=== PATIENT | male | born 1935 | race Caucasian/White ===

== ENCOUNTER 2017-07-05 12:37 | Outpatient (CLI) | payer OTHER | END 2017-07-05 12:46 | disposition home or self-care (01) | LOC: RAD 12:37 | DX: M43.17 Spondylolisthesis, lumbosacral region (principal) ==

== ENCOUNTER 2017-07-12 12:59 | Outpatient (CLI) | payer OTHER | END 2017-07-12 13:23 | disposition home or self-care (01) | LOC: MRI 12:59 | DX: M46 Other inflammatory spondylopathies (principal); M19.90 Unspecified osteoarthritis, unspecified site; M48.00 Spinal stenosis, site unspecified | CPT/HCPCS: 72148 ==

== ENCOUNTER 2017-10-01 10:09 | Outpatient (CLI) | payer OTHER ==
[~2017-10-01 10:09] MED LIST: NABUMETONE750 MG PO; VOLTAREN100 GM TOP
== END 2017-10-01 10:10 | disposition home or self-care (01) ==
LOC: LAB 10:09
DX: I10 Essential (primary) hypertension (principal); E11.9 Type 2 diabetes mellitus without complications; E03.8 Other specified hypothyroidism; E78.2 Mixed hyperlipidemia

== ENCOUNTER 2017-10-03 10:21 | Outpatient (CLI) | payer OTHER | END 2017-10-03 10:47 | disposition home or self-care (01) | LOC: SONOGRAMA 10:21 | DX: M12.9 Arthropathy, unspecified (principal); M19.90 Unspecified osteoarthritis, unspecified site ==

== ENCOUNTER 2017-11-26 14:23 | Emergency (ER) | payer OTHER ==
[~2017-11-26] VITALS: Ht 170.2 cm; Wt 74.8 kg
[2017-11-26] MEDS ORDERED: XANAX XR0.5 MG PO (14:39)
[2017-11-26] MEDS ORDERED: AMBIEN5 MG PO (14:39)
== END 2017-11-26 15:27 | disposition home or self-care (01) ==
LOC: ER 14:23
DX: S01.02XA Laceration with foreign body of scalp, initial encounter (principal); W26.8XXA Contact with other sharp object(s), not elsewhere classified, initial encounter; Y93.89 Activity, other specified; Y92.89 Other specified places as the place of occurrence of the external cause; Y99.8 Other external cause status

== ENCOUNTER 2017-12-03 13:38 | Emergency (ER) | payer OTHER ==
[~2017-12-03] VITALS: Ht 170.2 cm; Wt 76.2 kg
[~2017-12-03 13:38] MED LIST changes: +AMBIEN5 MG PO; +XANAX XR0.5 MG PO
== END 2017-12-03 14:55 | disposition home or self-care (01) ==
LOC: ER 13:38
DX: Z48.02 Encounter for removal of sutures (principal)

== ENCOUNTER 2018-04-15 08:13 | Outpatient (CLI) | payer OTHER | END 2018-04-15 08:22 | disposition home or self-care (01) | LOC: SONOGRAMA 08:13 | DX: R10.9 Unspecified abdominal pain (principal) ==

== ENCOUNTER 2018-09-04 15:43 | Outpatient (CLI) | payer OTHER | END 2018-09-04 15:53 | disposition home or self-care (01) | LOC: TOM 15:43 | DX: J98.4 Other disorders of lung (principal); J44.9 Chronic obstructive pulmonary disease, unspecified; R06.02 Shortness of breath ==

== ENCOUNTER 2018-09-10 10:49 | Outpatient (CLI) | payer OTHER | END 2018-09-10 11:13 | disposition home or self-care (01) | LOC: EKG 10:49 → LAB 10:49 | DX: I10 Essential (primary) hypertension (principal) ==

== ENCOUNTER → 2018-10-01 10:32 | Outpatient (CLI) | payer OTHER | END | disposition home or self-care (01) | LOC: LAB 10:32 | DX: E03.8 Other specified hypothyroidism (principal); I11.9 Hypertensive heart disease without heart failure; E78.49 Other hyperlipidemia; D64.89 Other specified anemias; N40.0 Benign prostatic hyperplasia without lower urinary tract symptoms; R06.1 Stridor ==

== ENCOUNTER 2019-09-05 13:18 | Outpatient (CLI) | payer OTHER | END 2019-09-05 14:21 | disposition home or self-care (01) | LOC: SONOGRAMA 13:18 | PROVIDERS: ATTEND Urology | DX: N40.1 Benign prostatic hyperplasia with lower urinary tract symptoms (principal); R31.1 Benign essential microscopic hematuria ==

== ENCOUNTER 2019-09-05 14:08 | Outpatient (CLI) | payer OTHER | END 2019-09-05 15:00 | disposition home or self-care (01) | LOC: LAB 14:08 | PROVIDERS: ATTEND Radiology Diagnostic Radiology | DX: N20.0 Calculus of kidney (principal); H53.2 Diplopia ==

== ENCOUNTER 2019-09-08 13:31 | Outpatient (CLI) | payer OTHER | END 2019-09-08 13:49 | disposition home or self-care (01) | LOC: MRI 13:31 | PROVIDERS: ATTEND Ophthalmology | DX: G80.8 Other cerebral palsy (principal) | CPT/HCPCS: 70553; A9575 ==

== ENCOUNTER → 2019-09-22 | Outpatient (CLI) | payer OTHER | END | disposition home or self-care (01) | LOC: MRI 12:50 | PROVIDERS: ATTEND Neuromusculoskeletal Medicine & OMM | DX: H49.22 Sixth [abducent] nerve palsy, left eye (principal) | CPT/HCPCS: 70544 ==

== ENCOUNTER 2019-12-09 10:58 | Outpatient (CLI) | payer OTHER | END 2019-12-09 11:05 | disposition home or self-care (01) | LOC: TOM 10:58 | DX: I11.9 Hypertensive heart disease without heart failure (principal); E78.49 Other hyperlipidemia; J44.9 Chronic obstructive pulmonary disease, unspecified ==

== ENCOUNTER 2020-01-09 12:34 | Outpatient (CLI) | payer OTHER | END 2020-01-09 13:00 | disposition home or self-care (01) | LOC: NUCLEAR 12:34 | DX: I82.409 Acute embolism and thrombosis of unspecified deep veins of unspecified lower extremity (principal) ==

== ENCOUNTER 2020-01-15 13:59 | Outpatient (CLI) | payer OTHER | END 2020-01-15 14:06 | disposition home or self-care (01) | LOC: RAD 13:59 | PROVIDERS: ATTEND Internal Medicine Cardiovascular Disease | DX: M77.31 Calcaneal spur, right foot (principal); M12.871 Other specific arthropathies, not elsewhere classified, right ankle and foot ==

== ENCOUNTER 2020-04-22 12:43 | Outpatient (CLI) | payer OTHER | END 2020-04-22 12:50 | disposition home or self-care (01) | LOC: LAB 12:43 | PROVIDERS: ATTEND Urology | DX: J45.998 Other asthma (principal); J20.8 Acute bronchitis due to other specified organisms; I10 Essential (primary) hypertension; I11.9 Hypertensive heart disease without heart failure; E29.1 Testicular hypofunction ==

== ENCOUNTER → 2020-05-03 | Outpatient (CLI) | payer OTHER | END | disposition home or self-care (01) | LOC: SONOGRAMA 04-27 10:27 | PROVIDERS: ATTEND Urology | DX: N41.8 Other inflammatory diseases of prostate (principal) ==

== ENCOUNTER 2021-01-12 18:36 | Emergency (ER) | payer OTHER ==
[~2021-01-12] VITALS: Ht 170.2 cm; Wt 81.6 kg
== END 2021-01-12 21:38 | disposition home or self-care (01) ==
LOC: ER 18:36
DX: R60.0 Localized edema (principal); R06.02 Shortness of breath; R53.1 Weakness

== ENCOUNTER → 2021-01-14 09:44 | Outpatient (CLI) | payer OTHER | END | disposition home or self-care (01) | LOC: NUCLEAR 09:44 | PROVIDERS: ATTEND General Practice | DX: I87.2 Venous insufficiency (chronic) (peripheral) (principal); R22.43 Localized swelling, mass and lump, lower limb, bilateral ==

== ENCOUNTER → 2021-02-01 08:11 | Outpatient (CLI) | payer OTHER | END | disposition home or self-care (01) | LOC: NUCLEAR 08:00 | PROVIDERS: ATTEND Specialist | DX: I11.9 Hypertensive heart disease without heart failure (principal); I44.7 Left bundle-branch block, unspecified; I25.9 Chronic ischemic heart disease, unspecified | CPT/HCPCS: 78452; 93017; A9505; J1250 ==

== ENCOUNTER 2021-10-07 11:15 | Outpatient (CLI) | payer OTHER ==
[2021-10-08] MEDS ORDERED: MONTELUKAST SOD10 MG PO (12:08)
[2021-10-08] MEDS ORDERED: VALSARTAN160 MG PO (12:08)
[2021-10-08] MEDS ORDERED: PROAIR HFA8.5 GM IH (12:08)
[2021-10-08] MEDS ORDERED: ANORO ELLIPTA1 EACH IH (12:08)
[2021-10-08] MEDS ORDERED: ESCITALOPRAM OX20 MG PO (12:08)
[2021-10-08] MEDS ORDERED: AMLODIPINE BESYL5 MG PO (12:09)
[2021-10-08] MEDS ORDERED: ROSUVASTATIN CAL5 MG PO (12:09)
[2021-10-08] MEDS ORDERED: VITAMIN D350 MCG PO (12:09)
[2021-10-08] MEDS ORDERED: FISH OIL 1,0001 EAC1 PO (12:09)
== END 2021-10-07 11:21 | disposition home or self-care (01) ==
LOC: SONOGRAMA 11:15
PROVIDERS: ATTEND Specialist
DX: K40.90 Unilateral inguinal hernia, without obstruction or gangrene, not specified as recurrent (principal)

== ENCOUNTER 2021-10-08 11:09 | Emergency (ER) | payer OTHER ==
[~2021-10-08] VITALS: Ht 165.1 cm; Wt 81.6 kg
[2021-10-08] MEDS ORDERED: ANORO ELLIPTA1 EACH IH (12:08)
[2021-10-08] MEDS ORDERED: PROAIR HFA8.5 GM IH (12:08)
[2021-10-08] MEDS ORDERED: VALSARTAN160 MG PO (12:08)
[2021-10-08] MEDS ORDERED: ESCITALOPRAM OX20 MG PO (12:08)
[2021-10-08] MEDS ORDERED: MONTELUKAST SOD10 MG PO (12:08)
[2021-10-08] MEDS ORDERED: FISH OIL 1,0001 EAC1 PO (12:09)
[2021-10-08] MEDS ORDERED: VITAMIN D350 MCG PO (12:09)
[2021-10-08] MEDS ORDERED: ROSUVASTATIN CAL5 MG PO (12:09)
[2021-10-08] MEDS ORDERED: AMLODIPINE BESYL5 MG PO (12:09)
== END 2021-10-08 17:17 | disposition home or self-care (01) ==
LOC: ER 11:09
DX: S09.93XA Unspecified injury of face, initial encounter (principal); W19.XXXA Unspecified fall, initial encounter; Y93.89 Activity, other specified; Y92.009 Unspecified place in unspecified non-institutional (private) residence as the place of occurrence of the external cause; Y99.9 Unspecified external cause status; R51.9 Headache, unspecified; M25.512 Pain in left shoulder; S49.92XA Unspecified injury of left shoulder and upper arm, initial encounter

== ENCOUNTER 2022-01-02 15:26 | Outpatient (CLI) | payer OTHER ==
[~2022-01-02 15:26] MED LIST changes: +AMLODIPINE BESYL5 MG PO; +ANORO ELLIPTA1 EACH IH; +ESCITALOPRAM OX20 MG PO; +FISH OIL 1,0001 EAC1 PO; +MONTELUKAST SOD10 MG PO; +PROAIR HFA8.5 GM IH; +ROSUVASTATIN CAL5 MG PO; +VALSARTAN160 MG PO; +VITAMIN D350 MCG PO
[2022-01-05] MEDS ORDERED: PLAVIX75 MG PO (09:47)
[2022-01-05] MEDS ORDERED: CHILDREN'S ASPI81 MG PO (09:48)
[2022-01-05] MEDS ORDERED: IMDUR PO (09:48)
[2022-01-05] MEDS ORDERED: VALSARTAN160 MG PO (09:48)
[2022-01-05] MEDS ORDERED: NITROGLYCERIN0.4 MG SL (09:49)
[2022-01-05] MEDS ORDERED: FINASTERIDE5 MG PO (09:49)
[2022-01-05] MEDS ORDERED: LEXAPRO20 MG PO (09:50)
[2022-01-05] MEDS ORDERED: DITROPAN XL5 MG PO (09:50)
[2022-01-05] MEDS ORDERED: TRELEGY ELLIPT1 EACH IH (09:51)
[2022-01-05] MEDS ORDERED: FAMOTI PO (09:51)
== END 2022-01-02 15:32 | disposition home or self-care (01) ==
LOC: RAD 15:26
PROVIDERS: ATTEND Psychiatry & Neurology Psychiatry
DX: S60.011A Contusion of right thumb without damage to nail, initial encounter (principal); S70.02XA Contusion of left hip, initial encounter

== ENCOUNTER 2022-01-04 09:22 | Outpatient (CLI) | payer OTHER ==
[2022-01-05] MEDS ORDERED: PLAVIX75 MG PO (09:47)
[2022-01-05] MEDS ORDERED: IMDUR PO (09:48)
[2022-01-05] MEDS ORDERED: CHILDREN'S ASPI81 MG PO (09:48)
[2022-01-05] MEDS ORDERED: VALSARTAN160 MG PO (09:48)
[2022-01-05] MEDS ORDERED: FINASTERIDE5 MG PO (09:49)
[2022-01-05] MEDS ORDERED: NITROGLYCERIN0.4 MG SL (09:49)
[2022-01-05] MEDS ORDERED: LEXAPRO20 MG PO (09:50)
[2022-01-05] MEDS ORDERED: DITROPAN XL5 MG PO (09:50)
[2022-01-05] MEDS ORDERED: TRELEGY ELLIPT1 EACH IH (09:51)
[2022-01-05] MEDS ORDERED: FAMOTI PO (09:51)
== END 2022-01-04 09:27 | disposition home or self-care (01) ==
LOC: RAD 09:22
PROVIDERS: ATTEND Orthopaedic Surgery
DX: M54.50 Low back pain, unspecified (principal); M25.552 Pain in left hip; S63.124A Dislocation of interphalangeal joint of right thumb, initial encounter

== ENCOUNTER → 2022-01-05 08:00 | Outpatient (CLI) | payer OTHER ==
[~2022-01-05] VITALS: Ht 170.2 cm; Wt 83.5 kg
[~2022-01-05 08:00] MED LIST changes: +BACLOFEN10 MG; +CHILDREN'S ASPI81 MG PO; +CLOPIDOGREL BIS75 MG; +DITROPAN XL5 MG PO; +DOXAZOSIN MESYLA4 MG; +FAMOTI PO; +FINASTERIDE5 MG PO; +IMDUR PO; +ISOSORBIDE MONO30 M2; +LEXAPRO20 MG PO; +MELOXICAM15 MG; +NITROGLYCERIN0.4 MG SL; +PLAVIX75 MG PO; +ROSUVASTATIN CAL5 MG; +TAMSULOSIN HCL0.4 MG; +TRELEGY ELLIPT1 EACH IH
== END | disposition home or self-care (01) ==
LOC: LAB 08:00 → EDSTATUS 01-09 08:30 → CIR.AMB 01-09 08:30
PROVIDERS: ATTEND Orthopaedic Surgery
DX: D64.9 Anemia, unspecified (principal); Z03.818 Encounter for observation for suspected exposure to other biological agents ruled out; E88.9 Metabolic disorder, unspecified; D68.8 Other specified coagulation defects; N39.0 Urinary tract infection, site not specified; E11.9 Type 2 diabetes mellitus without complications; Z76.89 Persons encountering health services in other specified circumstances; I10 Essential (primary) hypertension; S63.124A Dislocation of interphalangeal joint of right thumb, initial encounter

== ENCOUNTER 2022-01-06 11:48 | Inpatient (IN) | payer OTHER ==
[~2022-01-06] VITALS: Ht 170.2 cm; Wt 82.6 kg
[~2022-01-06 11:48] MED LIST changes: -BACLOFEN10 MG; -CLOPIDOGREL BIS75 MG; -DOXAZOSIN MESYLA4 MG; -ISOSORBIDE MONO30 M2; -MELOXICAM15 MG; -ROSUVASTATIN CAL5 MG; -TAMSULOSIN HCL0.4 MG
--- NOTE | 2022-01-06 12:27 | NUR ---
SE RECIBE PTE ALERTA Y ORIENTADO X3. LLEGA A RHONDA DE EMRGENCIA POR REFERIDO DE DR. TULIO WILKINS PARA SER OPERADO EL LUNES. SE ENTREGA REFERIDO A DRA JONES Y SE PROCEDE A COMUNICA CON DR. HUGGINS PARA PROXIMAS INTERVENCIONES A REALIZAR. SE UBICA EN SOFIA CON BARANDAS ELEVADAS EN COMPANIA DE FAMILIAR.PENDIENTE EVALUACION MEDICA Y LLAMADA A DR. JOSELUIS WILKINS.
--- NOTE | 2022-01-06 15:07 | NUR ---
PTE ALERTA,ESTABLE Y ORIENTADO,SE EDUCA SOBRE EL TRATAMIENTO QUE RECIBIRA EN EL HOSPITAL Y NELLA REIFERE ENTENDER
[2022-01-09] MEDS ORDERED: MELOXICAM15 MG (08:19)
[2022-01-09] MEDS ORDERED: TAMSULOSIN HCL0.4 MG (08:20)
[2022-01-09] MEDS ORDERED: BACLOFEN10 MG (08:20)
[2022-01-09] MEDS ORDERED: DOXAZOSIN MESYLA4 MG (08:20)
[2022-01-09] MEDS ORDERED: ROSUVASTATIN CAL5 MG (08:20)
[2022-01-09] MEDS ORDERED: ISOSORBIDE MONO30 M2 (08:20)
[2022-01-09] MEDS ORDERED: CLOPIDOGREL BIS75 MG (08:20)
== END 2022-01-09 14:05 | disposition left against medical advice (07) | DRG 983 ==
LOC: ER 11:48 → SURG 20:16
PROVIDERS: Orthopaedic Surgery; ADMIT Internal Medicine; ATTEND Internal Medicine
PROC: 3E0F7GC Introduction of Other Therapeutic Substance into Respiratory Tract, Via Natural or Artificial Opening (ICD-10-PCS; 2022-01-06)
PROC: 0PST34Z Reposition Right Finger Phalanx with Internal Fixation Device, Percutaneous Approach (ICD-10-PCS; principal; 2022-01-09 12:15)
DX: J44.1 Chronic obstructive pulmonary disease with (acute) exacerbation (principal); J98.01 Acute bronchospasm; S62.511A Displaced fracture of proximal phalanx of right thumb, initial encounter for closed fracture; Z20.822 Contact with and (suspected) exposure to COVID-19

== ENCOUNTER 2022-02-07 13:15 | Outpatient (CLI) | payer OTHER ==
[~2022-02-07 13:15] MED LIST changes: +BACLOFEN10 MG; +CLOPIDOGREL BIS75 MG; +DOXAZOSIN MESYLA4 MG; +ISOSORBIDE MONO30 M2; +MELOXICAM15 MG; +ROSUVASTATIN CAL5 MG; +TAMSULOSIN HCL0.4 MG
== END 2022-02-07 13:18 | disposition home or self-care (01) ==
LOC: RAD 13:15
PROVIDERS: ATTEND Orthopaedic Surgery
DX: S63.12 Subluxation and dislocation of interphalangeal joint of thumb (principal)

== ENCOUNTER 2022-02-17 13:54 | Outpatient (CLI) | payer OTHER | END 2022-02-17 14:02 | disposition home or self-care (01) | LOC: RAD 13:54 | PROVIDERS: ATTEND Internal Medicine Pulmonary Disease | DX: J43.2 Centrilobular emphysema (principal); Z87.891 Personal history of nicotine dependence; E66.01 Morbid (severe) obesity due to excess calories ==

== ENCOUNTER 2022-03-06 10:08 | Outpatient (CLI) | payer OTHER | END 2022-03-06 10:43 | disposition home or self-care (01) | LOC: RAD 10:08 | PROVIDERS: ATTEND Orthopaedic Surgery | DX: M54.50 Low back pain, unspecified (principal); S63.12 Subluxation and dislocation of interphalangeal joint of thumb ==

== ENCOUNTER 2022-06-01 13:20 | Outpatient (CLI) | payer OTHER | END 2022-06-01 13:29 | disposition home or self-care (01) | LOC: MRI 13:20 | PROVIDERS: ATTEND Physical Medicine & Rehabilitation | DX: M54.17 Radiculopathy, lumbosacral region (principal) | CPT/HCPCS: 72148 ==

== ENCOUNTER 2022-12-08 13:25 | Outpatient (CLI) | payer OTHER | END 2022-12-08 13:36 | disposition home or self-care (01) | LOC: TOM 13:25 | PROVIDERS: ATTEND Specialist | DX: I11.9 Hypertensive heart disease without heart failure (principal); J44.9 Chronic obstructive pulmonary disease, unspecified; Q25.44 Congenital dilation of aorta ==

== ENCOUNTER 2023-04-17 11:47 | Outpatient (CLI) | payer OTHER | END 2023-04-17 12:13 | disposition home or self-care (01) | LOC: TOM 11:47 | PROVIDERS: ATTEND Specialist | DX: J44.9 Chronic obstructive pulmonary disease, unspecified (principal); I11.9 Hypertensive heart disease without heart failure; R05.9 Cough, unspecified ==

== ENCOUNTER 2023-06-04 11:32 | Outpatient (CLI) | payer OTHER | END 2023-06-04 11:35 | disposition home or self-care (01) | LOC: SONOGRAMA 11:32 | PROVIDERS: ATTEND Urology | DX: N40.0 Benign prostatic hyperplasia without lower urinary tract symptoms (principal); R31.21 Asymptomatic microscopic hematuria; R33.9 Retention of urine, unspecified ==

== ENCOUNTER 2024-01-11 16:03 | Outpatient (CLI) | payer OTHER | END 2024-01-11 16:20 | disposition home or self-care (01) | LOC: RAD 16:03 | PROVIDERS: ATTEND Internal Medicine Cardiovascular Disease | DX: M12.9 Arthropathy, unspecified (principal); M46.47 Discitis, unspecified, lumbosacral region ==

== ENCOUNTER 2024-02-07 09:49 | Outpatient (CLI) | payer OTHER | END 2024-02-07 10:03 | disposition home or self-care (01) | LOC: TOM 09:49 | DX: I77.819 Aortic ectasia, unspecified site (principal) ==

== ENCOUNTER 2024-02-21 10:11 | Outpatient (CLI) | payer OTHER | END 2024-02-21 10:17 | disposition home or self-care (01) | LOC: RAD 10:11 | DX: M79.604 Pain in right leg (principal) ==

== ENCOUNTER 2024-09-17 09:52 | Outpatient (CLI) | payer OTHER | END 2024-09-17 10:19 | disposition home or self-care (01) | LOC: TOM 09:52 | DX: S30.1XXA Contusion of abdominal wall, initial encounter (principal); S00.93XA Contusion of unspecified part of head, initial encounter; S00.83XA Contusion of other part of head, initial encounter ==

== ENCOUNTER 2025-01-23 09:56 | Outpatient (CLI) | payer OTHER | END 2025-01-23 10:08 | disposition home or self-care (01) | LOC: TOM 09:56 | PROVIDERS: ATTEND Internal Medicine Cardiovascular Disease | DX: R51.9 Headache, unspecified (principal) ==